=== PATIENT | male | born 1935 | race Hispanic/Latino ===

== ENCOUNTER 2017-03-26 10:23 | Inpatient (IN) | payer MEDICARE, BC ==
[2017-03-26] MEDS ORDERED: Sodium Chloride 0.9% 500 ML IV ONE (10:50)
[2017-03-26] MEDS ORDERED: Sodium Chloride 0.9% 250 ML IV ONE (10:59)
--- NOTE | 2017-03-26 10:59 | C.PDOC ---
History Of Present Illness 81 year old male with extensive cardiac history presents to the ED after a syncopal episode that occurred today while he was at home today. Patient denies any preceding symptoms CP, SOB, dizziness, nausea, vomit, headache. Patient states that he feels weak at the moment. Time Seen by Provider: 03/26/17 10:44 Chief Complaint (Nursing): Syncope History Per: Patient History/Exam Limitations: no limitations Onset/Duration Of Symptoms: Hrs Current Symptoms Are (Timing): Still Present Number Of Syncopal Episodes: 1 Associated Symptoms Preceding Syncopal Episode: No Predromal Symptoms (Sudden Onset) Seizure Or Post-ictal Symptoms: None Fall Associated With With Symptoms: No Severity: None Recent travel outside of the [place]: No Additional History Per: Patient Past Medical History Reviewed: Historical Data, Nursing Documentation, Vital Signs Vital Signs: Last Vital Signs Temp 97.6 F 03/26/17 10:33 Pulse 69 03/26/17 12:11 Resp 18 03/26/17 12:11 BP 105/64 03/26/17 12:11 Pulse Ox 97 03/26/17 12:47 - Medical History PMH: Benign Prostatic Hyperplasia, CAD, Deep Vein Thrombosis (5 STENTS), HTN, Hypercholesterolemia, Kidney Stones Surgical History: CABG, Coronary Stent - [facility] Procedures APPLICATION OF SPLINT (08/08/12) COLONOSCOPY (08/01/12) ENDOSC POLYPECTOMY OF LG INTEST (08/01/12) INDWELL CATH IRRIG NEC (11/26/12) INJECT/INFUSE NEC (08/01/12) OTHER SKIN & SUBQ I D (08/16/12) PHYSICAL THERAPY NEC (08/19/12) RECREATIONAL THERAPY (08/19/12) REMOV EXT IMMOBILIZATION (08/14/12) TU BLADDER CLEARANCE (11/13/12) ULTRASON FRAGMENT-STONE (11/13/12) Family History: States: Unknown Family Hx - Social History Hx Tobacco Use: No Hx Alcohol Use: No Hx Substance Use: No - Immunization History Hx Influenza Vaccination: No Hx Pneumococcal Vaccination: No Review Of Systems Constitutional: Positive for: Weakness. Negative for: Fever, Chills Cardiovascular: Negative for: Chest Pain Respiratory: Negative for: Cough, Shortness of Breath Gastrointestinal: Negative for: Nausea, Vomiting Musculoskeletal: Negative for: Back Pain Skin: Negative for: Rash Neurological: Positive for: Weakness. Negative for: Numbness, Headache, Dizziness Physical Exam - Physical Exam Appears: Non-toxic, No Acute Distress Skin: Normal Color, Warm, Dry Head: Atraumatic, Normacephalic Eye(s): bilateral: Normal Inspection Nose: No Discharge, No Deformity Oral Mucosa: Moist Neck: Normal ROM, Supple Chest: Symmetrical Cardiovascular: Rhythm Regular, No Murmur Respiratory: Normal Breath Sounds, No Rales, No Rhonchi, No Wheezing Gastrointestinal/Abdominal: Soft, No Tenderness, No Guarding, No Rebound Extremity: Normal ROM, No Pedal Edema, No Calf Tenderness, No Deformity, No Swelling Neurological/Psych: Oriented x3, Normal Speech, Normal Cognition, Normal Motor, Normal Sensation Gait: Steady ED Course And Treatment - Laboratory Results Result Diagrams: 03/26/17 11:02 03/26/17 11:02 ECG: Interpreted By Me, Viewed By Me ECG Rhythm: Atrial Fibrillation (Rate control), Nonspecific Changes (T wave) Interpretation Of ECG: Rate control A Fib at 81 BPM with normal intervals, poor R wave progression, PVCs, non specific T wave changes Rate From EC O2 Sat by Pulse Oximetry: 97 (On RA) Pulse Ox Interpretation: Normal - Radiology CXR: Viewed By Me, Read By Radiologist CXR Interpretation: Yes: Other (Mild cardiomegaly and pulmonary venous congestion.) - CT Scan/US Head CT Other Rad Studies (CT/US): Read By Radiologist, Radiology Report Reviewed CT/US Interpretation: FINDINGS: HEMORRHAGE: No intracranial hemorrhage. BRAIN : Diffuse atrophy with prominence of the ventricles and sulci noted. No mass effect or edema. Dense intracranial atherosclerosis. Scattered periventricular and subcortical white matter hypodensities, which are nonspecific, but often seen with chronic microvascular ischemic disease. Please note that MRI with diffusion imaging is more sensitive in the detection of acute ischemic event. VENTRICLES: No hydrocephalus. CALVARIUM: Unremarkable. PARANASAL SINUSES: Unremarkable as visualized. No significant inflammatory changes. MASTOID AIR CELLS: Unremarkable as visualized. No inflammatory changes. OTHER FINDINGS: None. IMPRESSION: No acute intracranial pathology identified. Findings as above. Medical Decision Making Medical Decision Making: Impression : Syncope Plan: * CT head * CXR * EKG * Labs * UA * Iv fluids Patient will be admitted to Telemetry under Dr. Phillip Romero for syncope. Disposition Discussed With .: Savannah Romero Doctor Will See Patient In The: Hospital Counseled Patient/Family Regarding: Studies Performed, Diagnosis - Disposition Disposition: HOSPITALIZED Disposition Time: 12:47 Condition: FAIR - Clinical Impression Clinical Impression: Syncope, NSTEMI (non-ST elevated myocardial infarction) - Scribe Statement The provider has reviewed the documentation as recorded by the Scribe Dusty Nuno All medical record entries made by the Scribe were at my direction and personally dictated by me. I have reviewed the chart and agree that the record accurately reflects my personal performance of the history, physical exam, medical decision making, and the department course for this patient. I have also personally directed, reviewed, and agree with the discharge instructions and disposition.
[2017-03-26 11:06] LABS: BASO % 0.3 % (0.0-2.0); EOS % 0.4 % (0.0-4.0); LYMPH % 13.4 % (20.0-40.0); MEAN CELL VOLUME 97.4 fL (80.0-94.0); MEAN CORPUSCULAR HEMOGLOBIN 32.5 pg (27.0-31.0); MEAN CORPUSCULAR HGB CONC 33.3 g/dL (33.0-37.0); MEAN PLATELET VOLUME 9.3 fL (7.2-11.7); MONO # 0.8 K/uL (0.0-0.8); MONO % 10.6 % (0.0-10.0); NEUT # 5.5 K/uL (1.8-7.0); NEUT % 75.3 % (50.0-75.0); NRBC % 0.2 % (0.0-2.0); RBC 5.24 Mil/uL (4.40-5.90); RED CELL DISTRIBUTION WIDTH 13.7 % (11.5-14.5); WHITE BLOOD COUNT 7.3 K/uL (4.8-10.8)
[2017-03-26 11:22] LABS: ALB/GLOB RATIO 1.2 (1.0-2.1); ALBUMIN 3.9 g/dL (3.5-5.0); ALT/SGPT 25 U/L (21-72); AST/SGOT 36 U/L (17-59); BLOOD UREA NITROGEN 40 mg/dL (9-20); CALCIUM 8.2 mg/dl (8.6-10.4); GFR AFRICAN-AMERICAN > 60; GFR NON-AFRICAN AMERICAN 53
--- NOTE | 2017-03-26 11:42 | CT ---
PROCEDURE: CT HEAD WITHOUT CONTRAST. HISTORY: dizziness COMPARISON: None available. TECHNIQUE: Axial computed tomography images were obtained through the head/brain without intravenous contrast. Radiation dose: Total exam DLP = 864.50 mGy-cm. This CT exam was performed using one or more of the following dose reduction techniques: Automated exposure control, adjustment of the mA and/or kV according to patient size, and/or use of iterative reconstruction technique. FINDINGS: HEMORRHAGE: No intracranial hemorrhage. BRAIN: Diffuse atrophy with prominence of the ventricles and sulci noted. No mass effect or edema. Dense intracranial atherosclerosis. Scattered periventricular and subcortical white matter hypodensities, which are nonspecific, but often seen with chronic microvascular ischemic disease. Please note that MRI with diffusion imaging is more sensitive in the detection of acute ischemic event. VENTRICLES: No hydrocephalus. CALVARIUM: Unremarkable. PARANASAL SINUSES: Unremarkable as visualized. No significant inflammatory changes. MASTOID AIR CELLS: Unremarkable as visualized. No inflammatory changes. OTHER FINDINGS: None. IMPRESSION: No acute intracranial pathology identified. Findings as above.
--- NOTE | 2017-03-26 12:21 | RAD ---
PROCEDURE: CHEST RADIOGRAPH, 1 VIEW HISTORY: Chest pain COMPARISON: None available. FINDINGS: LUNGS: The lungs are well inflated. There is mild pulmonary venous congestion. No focal consolidation. PLEURA: No pneumothorax or pleural fluid seen. CARDIOVASCULAR: There is mild cardiomegaly. Status post CABG. OSSEOUS STRUCTURES: No significant abnormalities. VISUALIZED UPPER ABDOMEN: Normal. OTHER FINDINGS: None. IMPRESSION: Mild cardiomegaly and pulmonary venous congestion.
[2017-03-26 13:48] LABS: SQUAMOUS EPITHIAL 4 /hpf (0-5); URINE BACTERIA RARE (<OCC); URINE BILIRUBIN NEGATIVE (NEGATIVE); URINE BLOOD NEGATIVE (NEGATIVE); URINE CLARITY Clear (Clear); URINE COLOR Yellow (YELLOW); URINE GLUCOSE (UA) NORMAL (Normal); URINE LEUKOCYTE ESTERASE NEG Leu/uL (Negative); URINE NITRATE NEGATIVE (NEGATIVE); URINE PROTEIN NEGATIVE (NEGATIVE); URINE UROBILINOGEN NORMAL mg/dL (0.2-1.0)
--- NOTE | 2017-03-26 16:39 | CP.PCM.HP ---
Past Patient History - Past Social History Smoking Status: Never Smoked - CARDIAC Hx Hypercholesterolemia: Yes Hx Hypertension: Yes - RENAL Hx Kidney Stones: Yes - PSYCHIATRIC Hx Substance Use: No - SURGICAL HISTORY Hx Coronary Artery Bypass Graft: Yes Hx Coronary Stent: Yes - ANESTHESIA Hx Anesthesia: Yes Hx Anesthesia Reactions: No Meds Allergies/Adverse Reactions: Allergies Allergy/AdvReac Type Severity Reaction Status Date / Time clopidogrel [From Plavix] Allergy ANAPHYLAXIS Verified 03/26/17 10:40 Penicillins Allergy RASH Verified 03/26/17 10:40 Physical Exam - Constitutional Appears: Well - Head Exam Head Exam: ATRAUMATIC, NORMAL INSPECTION, NORMOCEPHALIC - Eye Exam Eye Exam: EOMI, Normal appearance, PERRL Pupil Exam: NORMAL ACCOMODATION, PERRL - ENT Exam ENT Exam: Mucous Membranes Moist, Normal Exam - Neck Exam Neck exam: Positive for: Normal Inspection - Respiratory Exam Respiratory Exam: Decreased Breath Sounds - Cardiovascular Exam Cardiovascular Exam: REGULAR RHYTHM, +S1, +S2 - GI/Abdominal Exam GI & Abdominal Exam: Diminished Bowel Sounds, Soft - Rectal Exam Rectal Exam: Deferred Results - Vital Signs Recent Vital Signs: Last Vital Signs Temp 97.6 F 03/26/17 10:33 Pulse 76 03/26/17 14:46 Resp 16 03/26/17 14:46 BP 119/66 03/26/17 14:46 Pulse Ox 97 03/26/17 14:46 - Labs Result Diagrams: 03/26/17 11:02 03/26/17 11:02 Labs: Laboratory Results - last 24 hr 03/26/17 03/26/17 03/26/17 10:43 11:02 11:02 WBC 7.3 RBC 5.24 Hgb 17.0 Hct 51.0 MCV 97.4 H MCH 32.5 H MCHC 33.3 RDW 13.7 Plt Count 215 MPV 9.3 Neut % (Auto) 75.3 H Lymph % (Auto) 13.4 L [place] % (Auto) 10.6 H Eos % (Auto) 0.4 Baso % (Auto) 0.3 Neut # 5.5 Lymph # 1.0 Hart # 0.8 Eos # 0.0 Baso # 0.0 Sodium 135 Potassium 3.9 Chloride 100 Carbon Dioxide 21 L Anion Gap 17 BUN 40 H Creatinine 1.3 Est GFR ( Amer) > 60 Est GFR (Non-Af Amer) 53 POC Glucose (mg/dL) 146 H Random Glucose 132 H Calcium 8.2 L Total Bilirubin 0.9 AST 36 ALT 25 Alkaline Phosphatase 69 Troponin I 0.2320 H* Total Protein 7.1 Albumin 3.9 Globulin 3.2 Albumin/Globulin Ratio 1.2 Urine Color Urine Clarity Urine pH Ur Specific [place] Urine Protein Urine Glucose (UA) Urine Ketones Urine Blood Urine Nitrate Urine Bilirubin Urine Urobilinogen Ur Leukocyte Esterase Urine WBC (Auto) Urine RBC (Auto) Ur Squamous Epith Cells Urine Bacteria 03/26/17 13:38 WBC RBC Hgb Hct MCV MCH MCHC RDW Plt Count MPV Neut % (Auto) Lymph % (Auto) [place] % (Auto) Eos % (Auto) Baso % (Auto) Neut # Lymph # Hart # Eos # Baso # Sodium Potassium Chloride Carbon Dioxide Anion Gap BUN Creatinine Est GFR ( Amer) Est GFR (Non-Af Amer) POC Glucose (mg/dL) Random Glucose Calcium Total Bilirubin AST ALT Alkaline Phosphatase Troponin I Total Protein Albumin Globulin Albumin/Globulin Ratio Urine Color Yellow Urine Clarity Clear Urine pH 5.[address] [place] 1.021 Urine Protein Negative Urine Glucose (UA) Normal Urine Ketones Trace Urine Blood Negative Urine Nitrate Negative Urine Bilirubin Negative Urine Urobilinogen Normal Ur Leukocyte Esterase Neg Urine WBC (Auto) 2 Urine RBC (Auto) 2 Ur Squamous Epith Cells 4 Urine Bacteria Rare
[2017-03-26 20:30] LABS: CK-MB 3.36 ng/mL (0.0-3.38); TROPONIN I 0.178 ng/mL (0.00-0.120)
[2017-03-27 00:48] VITALS: RESP 20
[2017-03-27 07:49] LABS: BASO % 0.4 % (0.0-2.0); EOS % 0.5 % (0.0-4.0); HEMOGLOBIN 16.5 g/dL (12.0-18.0); LYMPH # 1.2 K/uL (1.0-4.3); LYMPH % 15.2 % (20.0-40.0); MEAN CELL VOLUME 96.2 fL (80.0-94.0); MEAN CORPUSCULAR HEMOGLOBIN 33.2 pg (27.0-31.0); MEAN CORPUSCULAR HGB CONC 34.6 g/dL (33.0-37.0); MEAN PLATELET VOLUME 9.1 fL (7.2-11.7); MONO # 0.8 K/uL (0.0-0.8); MONO % 10.1 % (0.0-10.0); NEUT # 5.9 K/uL (1.8-7.0); NEUT % 73.8 % (50.0-75.0); RBC 4.97 Mil/uL (4.40-5.90); RED CELL DISTRIBUTION WIDTH 13.4 % (11.5-14.5)
[2017-03-27 07:51] LABS: PROTHROMBIN TIME 11.4 SECONDS (9.7-12.2)
[2017-03-27 08:38] LABS: CK-MB 3.16 ng/mL (0.0-3.38); TROPONIN I 0.169 ng/mL (0.00-0.120)
[2017-03-27 08:50] LABS: CALCIUM 8.2 mg/dl (8.6-10.4); GFR AFRICAN-AMERICAN > 60; GFR NON-AFRICAN AMERICAN > 60
[2017-03-27 08:51] LABS: BLOOD UREA NITROGEN 35 mg/dL (9-20)
[2017-03-27] MEDS: Metoprolol Succinate 50 mg XL Tab PO SCH (09:57)
[2017-03-27] MEDS ORDERED: Ergocalciferol 50,000 Intl Units Cap PO SCH (10:00)
--- NOTE | 2017-03-27 12:46 | CP.PCM.CON ---
History of Present Illness - History of Present Illness History of Present Illness: 81 year old with severe ASHD s/p mutiple PCI and CABG, HTN. He was admitted to [facility] for mechanical fall. He was found to be in atrial fibrillation. Cardiology was consulted for minimal troponin elevation. Review of Systems - Review of Systems All systems: reviewed and no additional remarkable complaints except Past Patient History - Past Medical History & Family History Past Medical History?: Yes - Past Social History Smoking Status: Never Smoked - CARDIAC Hx Hypercholesterolemia: Yes Hx Hypertension: Yes - RENAL Hx Kidney Stones: Yes - MUSCULOSKELETAL/RHEUMATOLOGICAL Hx Falls: No - PSYCHIATRIC Hx Substance Use: No - SURGICAL HISTORY Hx Coronary Artery Bypass Graft: Yes Hx Coronary Stent: Yes - ANESTHESIA Hx Anesthesia: Yes Hx Anesthesia Reactions: No Meds Home Medications: Home Medication List Medication Instructions Recorded Confirmed Type Aspirin 81 mg PO DAILY #60 tab.chew 03/28/17 Rx Cholecalciferol (Vitamin D3) 1,000 unit PO DAILY #30 tab.chew 03/28/17 Rx [Vitamin D3] Docusate Sodium 100 mg PO DAILY #30 capsule 03/28/17 Rx Finasteride [Proscar] 5 mg PO DAILY #30 tab 03/28/17 Rx Metoprolol Succinate 50 mg PO DAILY #30 tab.er.24h 03/28/17 Rx Simvastatin 40 mg PO DAILY #30 tablet 03/28/17 Rx Valsartan 40 mg PO DAILY #30 tablet 03/28/17 Rx Allergies/Adverse Reactions: Allergies Allergy/AdvReac Type Severity Reaction Status Date / Time clopidogrel [From Plavix] Allergy ANAPHYLAXIS Verified 03/26/17 10:40 Penicillins Allergy RASH Verified 03/26/17 10:40 - Medications Medications: Current Medications Aspirin (Aspirin Chewable) 81 mg PO DAILY [facility] Last Admin: 03/27/17 09:56 Dose: 81 mg Docusate Sodium (Colace) 100 mg PO DAILY [facility] Last Admin: 03/27/17 09:56 Dose: 100 mg Ergocalciferol (Drisdol 50,000 Intl Units Cap) 1 cap PO QWK [facility] Last Admin: 03/27/17 09:56 Dose: 1 cap Finasteride (Proscar) 5 mg PO DAILY [facility] Last Admin: 03/27/17 09:56 Dose: 5 mg Heparin Sodium (Porcine) (Heparin) 5,000 units SC Q8 [facility] Last Admin: 03/27/17 09:56 Dose: 5,000 units Losartan Potassium (Cozaar) 25 mg PO DAILY [facility] Last Admin: 03/27/17 09:57 Dose: Not Given Metoprolol Succinate (Toprol Xl) 50 mg PO DAILY [facility] Last Admin: 03/27/17 09:57 Dose: Not Given Rosuvastatin Calcium (Crestor) 10 mg PO HS [facility] Last Admin: 03/26/17 22:54 Dose: 10 mg Physical Exam - Constitutional Appears: Well, Non-toxic - Head Exam Head Exam: ATRAUMATIC. absent: NORMOCEPHALIC (+Temoral wasting ) - Eye Exam Eye Exam: PERRL. absent: Scleral icterus - ENT Exam ENT Exam: Normal External Ear Exam (+Poor dentition ) - Neck Exam Neck exam: Positive for: Full Rom. Negative for: Lymphadenopathy - Respiratory Exam Respiratory Exam: Clear to Auscultation Bilateral, NORMAL BREATHING PATTERN - Cardiovascular Exam Cardiovascular Exam: Irregular Rhythm, REGULAR RHYTHM, +S1, +S4, Systolic Murmur. absent: JVD - GI/Abdominal Exam GI & Abdominal Exam: Normal Bowel Sounds. absent: Organomegaly - Extremities Exam Extremities exam: Positive for: pedal pulses present. Negative for: calf tenderness - Neurological Exam Neurological exam: CN II-XII Intact, Oriented x3 - Psychiatric Exam Psychiatric exam: Normal Affect, Normal Mood Results - Vital Signs Recent Vital Signs: Last Vital Signs Temp 98.3 F 03/27/17 09:07 Pulse 72 03/27/17 09:07 Resp 20 03/27/17 09:07 BP 99/64 L 03/27/17 09:07 Pulse Ox 99 03/27/17 09:07 - Labs Result Diagrams: 03/28/17 13:59 03/28/17 13:59 Labs: Laboratory Results - last 24 hr 03/26/17 03/26/17 03/27/17 13:38 19:45 07:36 WBC 8.0 RBC 4.97 Hgb 16.5 Hct 47.8 MCV 96.2 H MCH 33.2 H MCHC 34.6 RDW 13.4 Plt Count 193 MPV 9.1 Neut % (Auto) 73.8 Lymph % (Auto) 15.2 L [place] % (Auto) 10.1 H Eos % (Auto) 0.5 Baso % (Auto) 0.4 Neut # 5.9 Lymph # 1.2 [place] # 0.8 Eos # 0.0 Baso # 0.0 PT INR APTT Sodium Potassium Chloride Carbon Dioxide Anion Gap BUN Creatinine Est GFR ( Amer) Est GFR (Non-Af Amer) Random Glucose Calcium Total Creatine Kinase 112 CK-MB (Mass) 3.36 Troponin I 0.1780 H* TSH 3rd Generation Urine Color Yellow Urine Clarity Clear Urine pH 5.0 Ur Specific [place] 1.021 Urine Protein Negative Urine Glucose (UA) Normal Urine Ketones Trace Urine Blood Negative Urine Nitrate Negative Urine Bilirubin Negative Urine Urobilinogen Normal Ur Leukocyte Esterase Neg Urine WBC (Auto) 2 Urine RBC (Auto) 2 Ur Squamous Epith Cells 4 Urine Bacteria Rare 03/27/17 03/27/17 03/27/17 07:36 07:36 07:36 WBC RBC Hgb Hct MCV MCH MCHC RDW Plt Count MPV Neut % (Auto) Lymph % (Auto) [place] % (Auto) Eos % (Auto) Baso % (Auto) Neut # Lymph # [place] # Eos # Baso # PT 11.4 INR 1.0 APTT 33 Sodium 134 Potassium 4.0 Chloride 105 Carbon Dioxide 22 Anion Gap 11 BUN 35 H Creatinine 0.9 Est GFR ( Amer) > 60 Est GFR (Non-Af Amer) > 60 Random Glucose 98 Calcium 8.2 L Total Creatine Kinase 104 CK-MB (Mass) 3.16 Troponin I 0.1690 H* TSH 3rd Generation 1.40 Urine Color Urine Clarity Urine pH Ur Specific [place] Urine Protein Urine Glucose (UA) Urine Ketones Urine Blood Urine Nitrate Urine Bilirubin Urine Urobilinogen Ur Leukocyte Esterase Urine WBC (Auto) Urine RBC (Auto) Ur Squamous Epith Cells Urine Bacteria - EKG Data EKG Interpreted by: Myself (Afib) - Imaging and Cardiology Chest x-ray Status: Image reviewed by me Additional comment: No infiltrates Assessment & Plan - Assessment and Plan (Free Text) Assessment: 81 year old man with new onset of afib anticoagulate with NOAC, rate control Acute on chronic systolic CHF on toprol XL and ARB NSTEMI is present with minimal trooponin, the degree and trend suggests this is more likely due to cardiomyopathy and atrial fibrillation, continue trend until there is a peak ASHD s/p CABG and multiple PCI, high dose statin and asprin and NOAC.
--- NOTE | 2017-03-27 13:26 | CP.PCM.PN ---
Subjective - Date & Time of Evaluation Date of Evaluation: 03/27/17 Time of Evaluation: 13:10 - Subjective Subjective: PGY2 progress note for Dr. Romero 81 year old male with past medical history of CAD s/p CABG and 6 cardiac stents , HTN, HLD, BPD s/p prostate resection is admitted for an episode of fall with questionable syncope. Patient states that yesterday he was in his kitchen walking when he fell. He denies LOC, hitting head or any other part of body. Patient states that this has happened a few times before and he has never had LOC. Patient denies having any episode of confusion after fall or any bowel or bladder incontinence. Patient denies having any CP, SOB, abd pain, N/V/D/C, recent illness. patient is eating plenty at home and has regular meals. 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 PMHx: stated above Sx: CABG, prostate resection Allergies: penicillin and clopidogrel Meds: see MAR Objective - Vital Signs/Intake and Output Vital Signs (last 24 hours): Temp Pulse Resp BP Pulse Ox 98.3 F 72 20 99/64 L 99 03/27/17 09:07 03/27/17 09:07 03/27/17 09:07 03/27/17 09:07 03/27/17 09:07 Intake and Output: 03/27/17 03/27/17 06:59 18:59 Intake Total 0 Balance 0 - Medications Medications: Current Medications Aspirin (Aspirin Chewable) 81 mg PO DAILY [facility] Last Admin: 03/27/17 09:56 Dose: 81 mg Docusate Sodium (Colace) 100 mg PO DAILY [facility] Last Admin: 03/27/17 09:56 Dose: 100 mg Ergocalciferol (Drisdol 50,000 Intl Units Cap) 1 cap PO QWK [facility] Last Admin: 03/27/17 09:56 Dose: 1 cap Finasteride (Proscar) 5 mg PO DAILY [facility] Last Admin: 03/27/17 09:56 Dose: 5 mg Heparin Sodium (Porcine) (Heparin) 5,000 units SC Q8 [facility] Last Admin: 03/27/17 09:56 Dose: 5,000 units Losartan Potassium (Cozaar) 25 mg PO DAILY [facility] Last Admin: 03/27/17 09:57 Dose: Not Given Metoprolol Succinate (Toprol Xl) 50 mg PO DAILY [facility] Last Admin: 03/27/17 09:57 Dose: Not Given Rosuvastatin Calcium (Crestor) 10 mg PO HS [facility] Last Admin: 03/26/17 22:54 Dose: 10 mg - Labs Labs: 03/27/17 07:36 03/27/17 07:36 PT 11.4 SECONDS (9.7-12.2) 03/27/17 07:36 INR 1.0 03/27/17 07:36 APTT 33 SECONDS (21-34) 03/27/17 07:36 - Constitutional Appears: Non-toxic, No Acute Distress - Head Exam Head Exam: ATRAUMATIC - ENT Exam ENT Exam: Mucous Membranes Moist - Respiratory Exam Respiratory Exam: Clear to Ausculation Bilateral. absent: Accessory Muscle Use , Rales, Rhonchi, Wheezes, Respiratory Distress - Cardiovascular Exam Cardiovascular Exam: Irregular Rhythm, +S1, +S2. absent: Gallop, Rubs, Murmur - GI/Abdominal Exam GI & Abdominal Exam: Soft, Normal Bowel Sounds. absent: Distended, Firm, Guarding, Rigid, Tenderness, Organomegaly - Extremities Exam Extremities Exam: absent: Pedal Edema, Tenderness - Neurological Exam Neurological Exam: Alert, Awake, CN II-XII Intact, Oriented x3 - Psychiatric Exam Psychiatric exam: Normal Affect, Normal Mood - Skin Skin Exam: Dry, Intact, Normal Color, Warm Assessment and Plan - Assessment and Plan (Free Text) Assessment: 81 year old male with past medical history of CAD s/p CABG and 6 cardiac stents , HTN, HLD and BPH is admitted for questionable syncope. CT of head on admission was negative. Patient presented with elevated troponins which are down trending. EKG on admission showed new onset a fib with rate control. Syncope Neurology is consulted. Will check carotid US Orthostatic vital signs are normal CAD s/p CABG and cardiac stents x 6 Pt presented with elevated troponins which are down-trending Cardiology is consulted and recommend trending troponins Continue home aspirin, Cozaar, toprol, crestor Repeat EKG also showed Afib New onset A fib Patient currently rate controlled Patient also on Toprol SL 50 mg QD Cardiology is consulted and currently CHADSVASC score of 5. Will need oral anticoagulation HTN Currently BP under control Continue home med toprol and cozaar HLD Continue home med Crestor Prophylaxis Heparin SC 5000 units q8 Pepcid All managements and orders per Dr. Romero
--- NOTE | 2017-03-27 13:58 | VASCLAB ---
PROCEDURE: HISTORY: syncope COMPARISON: None available. TECHNIQUE: Grayscale and duplex Doppler evaluation of the cervical carotid and vertebral arteries were performed. The common carotid, carotid bifurcations and cervical Internal Carotid Artery (ICA) and proximal External Carotid Artery (ECA) were evaluated. The vertebral arteries were evaluated for gross patency and flow direction. Report prepared by Darrell Kent, BS, RVT FINDINGS: RIGHT CAROTID ARTERIES: 1. Common Carotid Artery: No significant focal plaque formation of the right common carotid artery. Maximum Peak Systolic velocity: 47 cm/sec: End-diastolic velocity 9 cm/sec. 2. Carotid Bifurcation: Calcific plaque formation. Maximum Peak Systolic velocity: 52 cm/sec: End-diastolic velocity 11 cm/sec. 3. Internal Carotid Artery: Moderate plaque formation of the right proximal ICA which does not results in hemodynamically significant stenosis. Plaque description: Calcific 3.1. Proximal Segment: Peak systolic velocity 59 cm/sec: End-diastolic velocity 20 cm/sec - % stenosis 0-15% 3.2. Middle Segment: Peak systolic velocity 62 cm/sec: End-diastolic velocity 24 cm/sec - % stenosis 0-15% 3.3. Distal Segment: Peak systolic velocity 44 cm/sec: End-diastolic velocity 19 cm/sec - % stenosis 0-15% 4. External Carotid Artery: No significant focal plaque formation. Peak systolic velocity 73 cm/sec 5. ICA/CCA Ratio: 1.3 LEFT CAROTID ARTERIES: 1. Common Carotid Artery: No significant focal plaque formation of the left common carotid artery. Maximum Peak Systolic velocity: 77 cm/sec: End-diastolic velocity 14 cm/sec. 2. Carotid Bifurcation: Calcific plaque formation. Maximum Peak Systolic velocity: 52 cm/sec: End-diastolic velocity 11 cm/sec. 3. Internal Carotid Artery: Moderate plaque formation of the left proximal ICA which results in hemodynamically significant stenosis. Plaque description: Calcific 3.1. Proximal Segment: Peak systolic velocity 59 cm/sec: End-diastolic velocity 20 cm/sec - % stenosis 0-15% 3.2. Middle Segment: Peak systolic velocity 54 cm/sec: End-diastolic velocity 18 cm/sec - % stenosis 0-15% 3.3. Distal Segment: Peak systolic velocity 46 cm/sec: End-diastolic velocity 20 cm/sec - % stenosis 0-15% 4. External Carotid Artery: No significant focal plaque formation. Peak systolic velocity 78 cm/sec 5. ICA/CCA Ratio: 1.0 VERTEBRAL ARTERIES: 1. Right Vertebral Artery: The right vertebral artery flow direction is antegrade. 2. Left Vertebral Artery: The left vertebral artery flow direction is antegrade. OTHER FINDINGS: 1. Right Brachial Blood pressure: 80 mmHg. 2. Left Brachial Blood pressure: 80 mmHg. IMPRESSION: RIGHT: Duplex scan does not suggest hemodynamically significant stenosis of the right extracranial carotid arteries. LEFT: Duplex scan does not suggest hemodynamically significant stenosis of the left extracranial carotid arteries.
--- NOTE | 2017-03-27 15:17 | CARD ---
APPROVED REPORT EXAM: Two-dimensional and M-mode echocardiogram with Doppler and color Doppler. Other Information Quality : GoodRhythm : INDICATION Syncope Non STEMI 2D DIMENSIONS IVSd1.0 (0.7-1.1cm)LVDd3.9 (3.9-5.9cm) PWd1.1 (0.7-1.1cm)LVDs2.7 (2.5-4.0cm) FS (%) 32.1 %LVEF (%)60.9 (>50%) M-Mode DIMENSIONS Left Atrium (MM)3.59 (2.5-4.0cm)Aortic Root2.81 (2.2-3.7cm) Mitral Valve MV E Blfuudeu59.5cm/sE/A ratio0.0 TDI E/Lateral E'0.0E/Medial E'0.0 Tricuspid Valve TR Peak Hclgyfuf387al/sTR Peak Gr.[id number] LEFT VENTRICLE The left ventricle is normal size. There is normal left ventricular wall thickness. The left ventricular function is overall normal. The left ventricular ejection fraction is about 65% The septal and anteroseptal orr are hypokinetic. The left ventricular diastolic function is normal. No left ventricle thrombus noted on this study. There is no ventricular septal defect visualized. There is no left ventricular aneurysm. There is no mass noted in the left ventricle. RIGHT VENTRICLE The right ventricle is normal size. There is normal right ventricular wall thickness. The right ventricular systolic function is normal. ATRIA The left atrium size is normal. The right atrium size is normal. The interatrial septum is intact with no evidence for an atrial septal defect. AORTIC VALVE The aortic valve is normal in structure and function. Trace aortic regurgitation is present. There is no aortic valvular stenosis. MITRAL VALVE The mitral valve is normal in structure and function. There is no evidence of mitral valve prolapse. There is no mitral valve stenosis. There is trace mitral valve regurgitation noted. TRICUSPID VALVE The tricuspid valve is normal in structure and function. There is mild tricuspid valve regurgitation noted. There is no tricuspid valve prolapse or vegetation. There is no tricuspid valve stenosis. PULMONIC VALVE The pulmonary valve is normal in structure and function. There is no pulmonic valvular regurgitation. There is no pulmonic valvular stenosis. GREAT VESSELS The aortic root is normal in size. The ascending aorta is normal in size. The pulmonary artery is normal. The IVC is normal in size and collapses >50% with inspiration. PERICARDIAL EFFUSION The pericardium appears normal. There is no pleural effusion. <Conclusion> The left ventricular function is overall normal. The septal and anteroseptal orr are hypokinetic. There is trace aortic regurgitation.
--- NOTE | 2017-03-27 16:28 | CARD ---
APPROVED REPORT EKG Measurement Heart [id number] <Conclusion> Atrial fibrillation with premature ventricular Left anterior fascicular block Possible Anterior infarct, age undetermined Abnormal ECG
--- NOTE | 2017-03-27 16:41 | CON ---
DATE: 03/27/2017 NEUROLOGY CONSULT CHIEF COMPLAINT: Syncope. HISTORY OF PRESENT ILLNESS: This is an 81-year-old man with past medical history of CAD, status post CABG and 6 cardiac stents, hypertension, hyperlipidemia, and BPH, status post prostate resection, came and admitted for episode of fall, questionable syncope. The patient said that he was in his kitchen while walking when he fell. He denies any loss of consciousness or hitting his head or any part of his body. He said this happened a few times before and he has never had loss of consciousness. The patient denies any episode of confusion or any bowel or bladder incontinence. He does have systolic and diastolic low blood pressures when getting up from a sitting to a standing position and he had low blood pressures when he came in. His lowest blood pressure was 99/46 and also had elevated BUN and creatinine. His CAT scan of the head showed no acute intracranial abnormalities. He had new onset AFib and had icywy-ly-eswjsjn CHF, on Toprol and ARB, NSTEMI. He has presented with minimal troponin and the degree of trend is just most likely due to cardiomyopathy and AFib. He is on high dose statin and aspirin and now on anticoagulant. PAST MEDICAL HISTORY: History of CAD, CABG, successful 6 stents; hypertension; hyperlipidemia; prostate resection. ALLERGIES: ALLERGIC TO PENICILLIN AND CLOPIDOGREL. PAST SURGICAL HISTORY: CABG and prostate resection. MEDICATIONS: Reviewed by nurse reconciliation sheet. FAMILY HISTORY: Noncontributory. SOCIAL HISTORY: No illicit drug use, smoking, or EtOH abuse. REVIEW OF SYSTEMS: A 14-point review of systems negative except per HPI. PHYSICAL EXAMINATION: VITAL SIGNS: Temperature is 98.2, pulse rate is 72, blood pressure 99/64, respiratory rate of 20, oxygen saturation 99% on room air. He has positive orthostatics. HEENT: Head is atraumatic, normocephalic. PERRLA. Extraocular muscles intact. NECK: Supple. No JVD. No adenopathy noted. LUNGS: Clear to auscultation. No adventitious sounds. HEART: S1, S2. Normal rate and rhythm. No murmurs, rubs, or gallops. ABDOMEN: Soft, nontender, nondistended. Bowel sounds present. EXTREMITIES: No clubbing. No cyanosis. Peripheral pulse 2+ felt bilaterally. NEUROLOGIC: The patient is alert, and oriented to person, place, month, and year. Speech is fluent without any errors. Cranial nerves II through XII intact. Motor: Moves all extremities equally. Toes downgoing bilaterally. Sensory: Light touch, pinprick, proprioception and, vibration are intact. DTRs are 2+ throughout and 1 at the ankles. Coordination: [id number]-nh-moyu intact. Gait is deferred for now. LABORATORY DATA: Sodium is 134, potassium 4, chloride 105, carbon dioxide 22, BUN of 35, creatinine 0.9, random glucose of 98, and trending troponins. ASSESSMENT AND PLAN: This is an 81-year-old man with past medical history of coronary artery disease, status post coronary artery bypass grafting, status post 6 cardiac stents; hypertension; hyperlipidemia; status post prostate resection, admitted for questionable syncope. CT of the head showed no acute intracranial abnormality. He had elevated troponins, which are currently down trending and the EKG showed new-onset atrial fibrillation, rate controlled, which Cardiology is following up. He is deconditioning, he does have orthostatic positive vital signs and he does have some low systolic and diastolic blood pressures. His near-syncope could be secondary to a transient cerebral hypoperfusion of the brain from low blood pressure and superimposed underlying paroxysmal atrial fibrillation. At this time: 1. He will need novel anticoagulation, possibly with Eliquis since his CHADS-VASc score is 5 and continue with Toprol for rate control. 2. Monitor electrolytes and correct accordingly. Aspirin and Crestor for stroke prevention and get physical therapy and occupational therapy evaluation. Carotid Doppler has been done and showed no significant hemodynamic stenosis. At this time, he is clinically stable from my standpoint. Thank you for this consult. Jitendra Charlton MD
--- NOTE | 2017-03-27 19:27 | CP.PCM.PN ---
Subjective - Date & Time of Evaluation Date of Evaluation: 03/27/17 Time of Evaluation: 11:20 - Subjective Subjective: clinically same Objective - Vital Signs/Intake and Output Vital Signs (last 24 hours): Temp Pulse Resp BP Pulse Ox 97.2 F L 76 20 115/75 97 03/27/17 15:26 03/27/17 15:26 03/27/17 15:26 03/27/17 15:26 03/27/17 15:26 Intake and Output: 03/27/17 03/28/17 18:59 06:59 Intake Total 480 Balance 480 - Medications Medications: Current Medications Aspirin (Aspirin Chewable) 81 mg PO DAILY [facility] Last Admin: 03/27/17 09:56 Dose: 81 mg Docusate Sodium (Colace) 100 mg PO DAILY [facility] Last Admin: 03/27/17 09:56 Dose: 100 mg Ergocalciferol (Drisdol 50,000 Intl Units Cap) 1 cap PO QWK [facility] Last Admin: 03/27/17 09:56 Dose: 1 cap Famotidine (Pepcid) 20 mg PO DAILY [facility] Last Admin: 03/27/17 15:13 Dose: 20 mg Finasteride (Proscar) 5 mg PO DAILY [facility] Last Admin: 03/27/17 09:56 Dose: 5 mg Heparin Sodium (Porcine) (Heparin) 5,000 units SC Q8 [facility] Last Admin: 03/27/17 14:06 Dose: 5,000 units Losartan Potassium (Cozaar) 25 mg PO DAILY [facility] Last Admin: 03/27/17 09:57 Dose: Not Given Metoprolol Succinate (Toprol Xl) 50 mg PO DAILY [facility] Last Admin: 03/27/17 09:57 Dose: Not Given Rosuvastatin Calcium (Crestor) 10 mg PO HS [facility] Last Admin: 03/26/17 22:54 Dose: 10 mg - Labs Labs: 03/27/17 07:36 03/27/17 07:36 PT 11.4 SECONDS (9.7-12.2) 03/27/17 07:36 INR 1.0 03/27/17 07:36 APTT 33 SECONDS (21-34) 03/27/17 07:36
[2017-03-28 08:55] VITALS: BP 160/69; TEMP 97.5
[2017-03-28] MEDS: Metoprolol Succinate 50 mg XL Tab PO SCH (10:26)
--- NOTE | 2017-03-28 11:20 | CP.PCM.PN ---
Subjective - Date & Time of Evaluation Date of Evaluation: 03/28/17 Time of Evaluation: 11:16 - Subjective Subjective: PGY2 progress note for Dr. Romero Pt seen and examined at bedside. No acute events overnight. Pt denies having any CP< SOB< abd pain, N/V/D/C, F/C, dizziness or ligthheadedness. 12 point ROS negative except for the above mentioned. Objective - Vital Signs/Intake and Output Vital Signs (last 24 hours): Temp Pulse Resp BP Pulse Ox 97.5 F L 86 20 160/69 H 98 03/28/17 08:54 03/28/17 08:54 03/28/17 08:54 03/28/17 08:54 03/28/17 08:54 Intake and Output: 03/28/17 03/28/17 06:59 18:59 Intake Total 640 Balance 640 - Medications Medications: Current Medications Aspirin (Aspirin Chewable) 81 mg PO DAILY [facility] Last Admin: 03/28/17 10:26 Dose: 81 mg Docusate Sodium (Colace) 100 mg PO DAILY [facility] Last Admin: 03/28/17 10:26 Dose: 100 mg Ergocalciferol (Drisdol 50,000 Intl Units Cap) 1 cap PO QWK [facility] Last Admin: 03/27/17 09:56 Dose: 1 cap Famotidine (Pepcid) 20 mg PO DAILY [facility] Last Admin: 03/28/17 10:26 Dose: 20 mg Finasteride (Proscar) 5 mg PO DAILY [facility] Last Admin: 03/28/17 10:26 Dose: 5 mg Heparin Sodium (Porcine) (Heparin) 5,000 units SC Q8 [facility] Last Admin: 03/28/17 05:42 Dose: 5,000 units Losartan Potassium (Cozaar) 25 mg PO DAILY [facility] Last Admin: 03/28/17 10:26 Dose: 25 mg Metoprolol Succinate (Toprol Xl) 50 mg PO DAILY [facility] Last Admin: 03/28/17 10:26 Dose: 50 mg Rosuvastatin Calcium (Crestor) 10 mg PO HS [facility] Last Admin: 03/27/17 22:14 Dose: 10 mg - Labs Labs: 03/27/17 07:36 03/27/17 07:36 PT 11.4 SECONDS (9.7-12.2) 03/27/17 07:36 INR 1.0 03/27/17 07:36 APTT 33 SECONDS (21-34) 03/27/17 07:36 - Constitutional Appears: Non-toxic, No Acute Distress - Head Exam Head Exam: ATRAUMATIC - ENT Exam ENT Exam: Mucous Membranes Moist - Respiratory Exam Respiratory Exam: Clear to Ausculation Bilateral. absent: Rales, Rhonchi, Wheezes - Cardiovascular Exam Cardiovascular Exam: Irregular Rhythm, +S1, +S2. absent: Tachycardia, Gallop, Rubs, Murmur - GI/Abdominal Exam GI & Abdominal Exam: Soft, Normal Bowel Sounds. absent: Distended, Firm, Guarding, Rigid, Tenderness, Organomegaly - Extremities Exam Extremities Exam: absent: Pedal Edema, Tenderness - Neurological Exam Neurological Exam: Alert, Awake, Oriented x3 - Psychiatric Exam Psychiatric exam: Normal Affect, Normal Mood - Skin Skin Exam: Dry, Intact, Normal Color, Warm Assessment and Plan - Assessment and Plan (Free Text) Assessment: 81 year old male with past medical history of CAD s/p CABG and 6 cardiac stents , HTN, HLD and BPH is admitted for questionable syncope. CT of head on admission was negative. Patient presented with elevated troponins which are down trending. EKG on admission showed new onset a fib with rate control. Syncope Neurology is consulted. Carotid US negative Orthostatic vital signs are normal CAD s/p CABG and cardiac stents x 6 Pt presented with elevated troponins which are down-trending Cardiology was consulted. Continue home aspirin, Cozaar, toprol, crestor ECHO done showed EF of 60.9% and septal and anteroseptal orr hypokinetic and trace AR New onset A fib Patient currently rate controlled Patient also on Toprol SL 50 mg QD Cardiology is consulted CHADSVASC score of 5. HAS BLED score of 3. Currently pt on Aspirin, is over 65 y/o and has hx of HTN. Patient has also had recurrent fall/syncope which predisposes him to injury and bleeding. Will hold off on starting oral AC at this time. Patient to follow up with cardiology upon discharge to discuss starting anticoagulation. HTN Currently BP under control Continue home med toprol and cozaar HLD Continue home med Crestor Prophylaxis Heparin SC 5000 units q8 Pepcid All managements and orders per Dr. Romero Patient is to follow up with PMD upon discharge. Patient to follow up with roving weight gauger upon discharge in 1 week. Patient to continue taking home medications as prescribed.
--- NOTE | 2017-03-28 12:12 | CP.PCM.PN ---
Subjective - Date & Time of Evaluation Date of Evaluation: 03/28/17 Time of Evaluation: 13:00 - Subjective Subjective: clinically same Objective - Vital Signs/Intake and Output Vital Signs (last 24 hours): Temp Pulse Resp BP Pulse Ox 97.5 F L 86 20 160/69 H 98 03/28/17 08:54 03/28/17 08:54 03/28/17 08:54 03/28/17 08:54 03/28/17 08:54 Intake and Output: 03/28/17 03/28/17 06:59 18:59 Intake Total 640 Balance 640 - Medications Medications: Current Medications Aspirin (Aspirin Chewable) 81 mg PO DAILY [facility] Last Admin: 03/28/17 10:26 Dose: 81 mg Docusate Sodium (Colace) 100 mg PO DAILY [facility] Last Admin: 03/28/17 10:26 Dose: 100 mg Ergocalciferol (Drisdol 50,000 Intl Units Cap) 1 cap PO QWK [facility] Last Admin: 03/27/17 09:56 Dose: 1 cap Famotidine (Pepcid) 20 mg PO DAILY [facility] Last Admin: 03/28/17 10:26 Dose: 20 mg Finasteride (Proscar) 5 mg PO DAILY [facility] Last Admin: 03/28/17 10:26 Dose: 5 mg Heparin Sodium (Porcine) (Heparin) 5,000 units SC Q8 [facility] Last Admin: 03/28/17 05:42 Dose: 5,000 units Losartan Potassium (Cozaar) 25 mg PO DAILY [facility] Last Admin: 03/28/17 10:26 Dose: 25 mg Metoprolol Succinate (Toprol Xl) 50 mg PO DAILY [facility] Last Admin: 03/28/17 10:26 Dose: 50 mg Rosuvastatin Calcium (Crestor) 10 mg PO HS [facility] Last Admin: 03/27/17 22:14 Dose: 10 mg - Labs Labs: 03/27/17 07:36 03/27/17 07:36 PT 11.4 SECONDS (9.7-12.2) 03/27/17 07:36 INR 1.0 03/27/17 07:36 APTT 33 SECONDS (21-34) 03/27/17 07:36 - Constitutional Appears: Well - Head Exam Head Exam: ATRAUMATIC, NORMAL INSPECTION, NORMOCEPHALIC - Eye Exam Eye Exam: EOMI, Normal appearance, PERRL Pupil Exam: NORMAL ACCOMODATION, PERRL - ENT Exam ENT Exam: Mucous Membranes Moist, Normal Exam - Neck Exam Neck Exam: Full ROM, Normal Inspection. absent: Lymphadenopathy - Respiratory Exam Respiratory Exam: Decreased Breath Sounds - Cardiovascular Exam Cardiovascular Exam: REGULAR RHYTHM, +S1, +S2 - GI/Abdominal Exam GI & Abdominal Exam: Soft, Diminished Bowel Sounds - Rectal Exam Rectal Exam: Deferred
--- NOTE | 2017-03-28 13:29 | CP.PCM.PN ---
Subjective - Date & Time of Evaluation Date of Evaluation: 03/28/17 Time of Evaluation: 13:28 - Subjective Subjective: Events reviewed Objective - Vital Signs/Intake and Output Vital Signs (last 24 hours): Temp Pulse Resp BP Pulse Ox 97.5 F L 86 20 160/69 H 98 03/28/17 08:54 03/28/17 08:54 03/28/17 08:54 03/28/17 08:54 03/28/17 08:54 Intake and Output: 03/28/17 03/28/17 06:59 18:59 Intake Total 640 Balance 640 - Medications Medications: Current Medications Aspirin (Aspirin Chewable) 81 mg PO DAILY [facility] Last Admin: 03/28/17 10:26 Dose: 81 mg Docusate Sodium (Colace) 100 mg PO DAILY [facility] Last Admin: 03/28/17 10:26 Dose: 100 mg Ergocalciferol (Drisdol 50,000 Intl Units Cap) 1 cap PO QWK [facility] Last Admin: 03/27/17 09:56 Dose: 1 cap Famotidine (Pepcid) 20 mg PO DAILY [facility] Last Admin: 03/28/17 10:26 Dose: 20 mg Finasteride (Proscar) 5 mg PO DAILY [facility] Last Admin: 03/28/17 10:26 Dose: 5 mg Heparin Sodium (Porcine) (Heparin) 5,000 units SC Q8 [facility] Last Admin: 03/28/17 05:42 Dose: 5,000 units Losartan Potassium (Cozaar) 25 mg PO DAILY [facility] Last Admin: 03/28/17 10:26 Dose: 25 mg Metoprolol Succinate (Toprol Xl) 50 mg PO DAILY [facility] Last Admin: 03/28/17 10:26 Dose: 50 mg Rosuvastatin Calcium (Crestor) 10 mg PO HS [facility] Last Admin: 03/27/17 22:14 Dose: 10 mg - Labs Labs: 03/27/17 07:36 03/27/17 07:36 PT 11.4 SECONDS (9.7-12.2) 03/27/17 07:36 INR 1.0 03/27/17 07:36 APTT 33 SECONDS (21-34) 03/27/17 07:36 - Constitutional Appears: Well, Non-toxic - Respiratory Exam Respiratory Exam: Clear to Ausculation Bilateral, NORMAL BREATHING PATTERN - Cardiovascular Exam Cardiovascular Exam: Irregular Rhythm, +S1, +S2, +S4, Murmur - GI/Abdominal Exam GI & Abdominal Exam: Normal Bowel Sounds. absent: Organomegaly Assessment and Plan - Assessment and Plan (Free Text) Assessment: 81 year old man with new onset of afib anticoagulate with NOAC, rate control Acute on chronic systolic CHF on toprol XL and ARB NSTEMI is present with minimal trooponin, the degree and trend suggests this is more likely due to cardiomyopathy and atrial fibrillation ASHD s/p CABG and multiple PCI, high dose statin and asprin and NOAC. Gait instability encourage use of walker or assist device recommended by PT. Follow up with Dr. Finney early next week regarding halfway rate control v. rhythm control
[2017-03-28 14:16] LABS: HEMOGLOBIN 15.1 g/dL (12.0-18.0); MEAN CELL VOLUME 94.9 fL (80.0-94.0); MEAN CORPUSCULAR HEMOGLOBIN 34.2 pg (27.0-31.0); MEAN PLATELET VOLUME 9.1 fL (7.2-11.7); RBC 4.43 Mil/uL (4.40-5.90); RED CELL DISTRIBUTION WIDTH 13.3 % (11.5-14.5); WHITE BLOOD COUNT 7.9 K/uL (4.8-10.8)
[2017-03-28 14:35] LABS: ALB/GLOB RATIO 1.3 (1.0-2.1); ALT/SGPT 24 U/L (21-72); AST/SGOT 23 U/L (17-59); BLOOD UREA NITROGEN 21 mg/dL (9-20); CALCIUM 8.4 mg/dl (8.6-10.4); GFR AFRICAN-AMERICAN > 60; GFR NON-AFRICAN AMERICAN > 60
[2017-03-28 15:47] VITALS: PULSE 94; O2SAT 96
--- NOTE | 2017-03-29 07:54 | PCM.HF ---
Heart Failure Core Measure - Heart Failure Ejection Fraction: 40 % or Greater LESTER Inhibitor Prescribed: No Contraindication/Reason for not providing: on ARB Beta-Elizabeth Prescribed: Metoprolol Succinate Angiotensin II Receptor Elizabeth Prescribed: Yes AnticoagulationTherapy for Atrial Fibrillation/Atrialflutter: Yes Aldosterone Antagonist Prescribed: No Contraindication/Reason for not providing: ef.>45 Hydralazine Nitrate Prescribed: No Contraindication/Reason for not providing: ef>45 Implantable Cardioverter Defibrillator Therapy: No Contraindication/Reason for not providing: ef>45 Cardiac Resynchronization Therapy Prescribed: No Contraindication/Reason for not providing: ef.45 - Follow up Will be discharged to: Home Follow Up Date (must be within 7 days from discharge): 04/02/17 Follow Up Time: 09:00
--- NOTE | 2017-03-29 20:09 | CARD ---
APPROVED REPORT EKG Measurement Heart [id number] <Conclusion> Atrial fibrillation with premature ventricular or aberrantly conducted complexes Left anterior fascicular block Abnormal ECG
== END 2017-03-28 17:08 | disposition home health service (06) | DRG 280 ==
LOC: C.ER 10:23 → C.9E 12:45 → C.6T 16:34
PROVIDERS: ADMIT Internal Medicine Nephrology; ATTEND Internal Medicine Nephrology
DX: I21.4 Non-ST elevation (NSTEMI) myocardial infarction (principal); I50.23 Acute on chronic systolic (congestive) heart failure; I48.0 Paroxysmal atrial fibrillation; I11.0 Hypertensive heart disease with heart failure; I25.10 Atherosclerotic heart disease of native coronary artery without angina pectoris; E78.00 Pure hypercholesterolemia, unspecified; E78.5 Hyperlipidemia, unspecified; N40.0 Benign prostatic hyperplasia without lower urinary tract symptoms; W18.30XA Fall on same level, unspecified, initial encounter; Z95.1 Presence of aortocoronary bypass graft; Z95.5 Presence of coronary angioplasty implant and graft; Z79.82 Long term (current) use of aspirin; Z79.899 Other long term (current) drug therapy; Z87.442 Personal history of urinary calculi; Z90.79 Acquired absence of other genital organ(s); Y92.000 Kitchen of unspecified non-institutional (private) residence as the place of occurrence of the external cause